=== PATIENT | male | born 1975 | race Caucasian/White ===

== ENCOUNTER 2017-02-14 18:39 | Emergency (ER) | payer OTHER ==
[~2017-02-14] VITALS: Ht 172.7 cm; Wt 72.0 kg
[2017-02-14 19:17] VITALS: BP 131/89; PULSE 74; RESP 18; TEMP 98.7; O2SAT 99
--- NOTE | 2017-02-14 20:16 | PD ---
HPI Chief Complaint: Psychiatric Symptoms Time Seen by Provider: 20:10 Travel History International Travel<30 days: No Contact w/Intl Traveler<30days: No Traveled to known affect area: No History of Present Illness HPI 41-year-old male is brought to the emergency department under Elder act for suicidal ideations. Per the Elder act documentation patient spoke with someone at the [facility] and told him that he was having thoughts of hurting himself. The patient states that he has had "weird thought patterns" recently and has been contemplating hurting himself, no clear plan. He denies any attempts to harm himself, denies any ingestion of substances in an attempt to harm himself. 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 He denies any alcohol use. He complains of lower back pain, states this is chronic and been ongoing for several years, denies any new injury or trauma. He denies chest pain, shortness of breath, abdominal pain fever, chills, nausea, vomiting, numbness or tingling, weakness, saddle anesthesia, bowel or bladder incontinence. No other complaints. PFSH Past Medical History Depression: Yes Hypertension: Yes Social History Alcohol Use: Yes Tobacco Use: Yes (1PPD ) Substance Use: Yes (OCCA.) Allergies-Medications (Allergen,Severity, Reaction): Coded Allergies: Neurontin (Verified Allergy, Intermediate, Tingling, 02/14/17) Reported Meds & Prescriptions Reported Meds & Active Scripts Active No Active Prescriptions or Reported Medications Review of Systems Except as stated in HPI: all other systems reviewed are Neg Physical Exam Narrative GENERAL: Well-nourished and well-developed pleasant male patient in no acute distress who is nontoxic appearing. SKIN: Warm and dry. HEAD: Normocephalic and atraumatic. EYES: No injection, drainage, or hyphema noted. PERRLA. EOMI. ENT: No nasal drainage noted. Oropharynx is clear. NECK: Supple and the trachea is midline. CARDIOVASCULAR: Regular rate and rhythm. RESPIRATORY: Breath sounds are equal bilaterally with no accessory muscle use, wheezing, rhonchi, or crackles. GASTROINTESTINAL: Abdomen is soft, non-tender, and nondistended. MUSCULOSKELETAL: No obvious deformities, swelling, cyanosis, or ecchymosis is present throughout the upper and lower extremities. Patient has full range of motion without any signs of neurovascular compromise. BACK: No erythema, warmth, swelling. Nontender without any obvious deformities , bony point tenderness, or crepitus noted throughout the thoracic and lumbar vertebrae. NEUROLOGICAL: Awake, alert, and oriented. Normal speech and gait. Cranial nerves are grossly intact. Data Data Last Documented VS Vital Signs Date Time Temp Pulse Resp B/P Pulse Ox O2 Delivery O2 Flow Rate FiO2 02/14/17 19:17 98.7 74 18 131/89 99 Orders Complete Blood Count With Diff (02/14/17 18:54) Comprehensive Metabolic Panel (02/14/17 18:54) Psych Screen (02/14/17 18:54) Drug Screen, Random Urine (02/14/17 18:54) Alcohol (Ethanol) (02/14/17 18:54) Labs Laboratory Tests Test 02/14/17 20:30 Urine Opiates Screen NEG Urine Barbiturates Screen NEG Urine Amphetamines Screen POS Urine Benzodiazepines Screen NEG Urine Cocaine Screen NEG Urine Cannabinoids Screen NEG MDM Medical Decision Making Medical Screen Exam Complete: Yes Emergency Medical Condition: Yes Differential Diagnosis Differential: Depression versus adjustment reaction versus anxiety versus PTSD versus psychosis NOS versus mood disorder NOS versus substance induced mood disorder versus ODD versus adjustment reaction versus schizophrenia versus bipolar disorder versus schizoaffective versus electrolyte abnormality Narrative Course Patient presents under a Elder act for suicidal ideations. Patient's only medical complaint is lower back pain, this is been ongoing for several years, no new or worsening pain. He is an IV drug user however he has no midline bony point tenderness, fever, elevated white count or any other red flags to suggest infectious etiology of his lower back pain. Psych screen has been ordered. If the laboratory results are unremarkable, the patient will be medically cleared for psychiatric evaluation and disposition. Diagnosis Primary Impression: Mood disorder Additional Impression: IVDU (intravenous drug user) Scripts No Active Prescriptions or Reported Meds Lilibeth Orozco February 14, 2017 20:16 Lilibeth Orozco February 14, 2017 20:16
[2017-02-14 21:42] LABS: AMPHETAMINE, URINE POS (NEG); BARBITURATES, URINE NEG (NEG); COCAINE, URINE NEG (NEG)
[2017-02-14 22:00] VITALS: BP 142/90; PULSE 77; RESP 18; O2SAT 96
[2017-02-14 23:52] LABS: AUTOMATED NEUTROPHIL # 3.5 TH/MM3 (1.8-7.7); BASOPHIL # 0.2 TH/MM3 (0-0.2); EOSINOPHIL # 0.4 TH/MM3 (0-0.4); EOSINOPHIL % 2.2 % (0.0-4.0); HEMATOCRIT 44.3 % (39.0-51.0); LYMPH % 74.3 % (9.0-44.0); LYMPHOCYTE # 13.5 TH/MM3 (1.0-4.8); MEAN CELL VOLUME 89.3 FL (80.0-100.0); MEAN CORPUSCULAR HEMOGLOBIN 29.7 PG (27.0-34.0); MEAN CORPUSCULAR HGB CONC 33.3 % (32.0-36.0); MONO % 3.1 % (0.0-8.0); NEUT % 19.4 % (16.0-70.0); PLATELET COUNT 214 TH/MM3 (150-450); RED BLOOD COUNT 4.96 MIL/MM3 (4.50-5.90); WHITE BLOOD COUNT 18.2 TH/MM3 (4.0-11.0)
[2017-02-14 23:59] LABS: HEMO FLAGS AUTO DIFF
[2017-02-15 00:15] LABS: ALKALINE PHOSPHATASE 77 U/L (45-117); ALT (GPT) 40 U/L (12-78); ANION GAP 5 MEQ/L (5-15); AST (GOT) 28 U/L (15-37); BICARBONATE 32.7 MEQ/L (21.0-32.0); BLOOD UREA NITROGEN 10 MG/DL (7-18); CHLORIDE 106 MEQ/L (98-107); GLOMERULAR FILTRATION RATE 81 ML/MIN (>89); SODIUM (NA) 144 MEQ/L (136-145); TOTAL BILIRUBIN ADULT 0.4 MG/DL (0.2-1.0)
[2017-02-15 01:10] LABS: ATYPICAL LYMPHOCYTES 30 % (0-0); BANDS 1 % (0-6); EOSINOPHILS 4 % (0-4); NEUTROPHIL # MANUAL DIFF 2.5 TH/MM3 (1.8-7.7); POLYS (SEG NEUTROPHILS) 13 % (16-70); WBC DIFF SAMPLE 100
[2017-02-15 01:11] LABS: PLATELET ESTIMATE SMEAR NORMAL (NORMAL); PLATELET MORPHOLOGY NORMAL (NORMAL); SCAN/DIFF FINAL DIFF MANUAL
[2017-02-15 02:07] VITALS: BP 145/87; PULSE 81; RESP 18; O2SAT 97
== END 2017-02-15 02:39 ==
LOC: NEPJ 18:39
DX: F39 Unspecified mood [affective] disorder (principal); F19.90 Other psychoactive substance use, unspecified, uncomplicated; R45.851 Suicidal ideations; M54.5 Low back pain; I10 Essential (primary) hypertension; F17.200 Nicotine dependence, unspecified, uncomplicated; Z86.59 Personal history of other mental and behavioral disorders
CPT/HCPCS: 80053; 80307; 85007; 85027; 99285

== ENCOUNTER 2017-02-16 17:37 | Emergency (ER) | payer OTHER ==
[~2017-02-16] VITALS: Ht 167.6 cm; Wt 80.0 kg
[2017-02-16 17:50] VITALS: BP 139/87; PULSE 89; RESP 20; TEMP 97.9; O2SAT 97
--- NOTE | 2017-02-16 18:09 | PD ---
HPI Chief Complaint: Psychiatric Symptoms Time Seen by Provider: 18:01 Travel History International Travel<30 days: No Contact w/Intl Traveler<30days: No Traveled to known affect area: No History of Present Illness HPI 41 year old male with PMH of HTN, depression, substance abuse ( methamphetamine) presents to the ED under Elder Act from the [place]. According to the [facility] paperwork the patient reports "no reason to live. Has previous suicide attempt in 2017, has no plan because he is not sure what will be successful, but will come up with something." On presentation the patient endorses hopelessness, depression. He endorses suicidality, but has no plan. He states last attempted suicide was by injection of methamphetamine. He states last use of meth was "2 or 3 weeks ago." He denies any substance or alcohol use today. Endorses chronic back pain, unchanged from usual pain. Denies other somatic complaints. He takes no daily medications. PFSH Past Medical History Depression: Yes Hypertension: Yes Social History Alcohol Use: Yes Tobacco Use: Yes (1PPD ) Substance Use: Yes (METH) Allergies-Medications (Allergen,Severity, Reaction): Coded Allergies: Neurontin (Verified Allergy, Intermediate, Tingling, 02/16/17) Reported Meds & Prescriptions Reported Meds & Active Scripts Active No Active Prescriptions or Reported Medications Review of Systems Except as stated in HPI: all other systems reviewed are Neg Physical Exam Narrative GENERAL: Well-nourished, well-developed white male in NAD. SKIN: Focused skin assessment warm/dry. Multiple tattoos HEAD: Normocephalic. EYES: No scleral icterus. No injection or drainage. NECK: Supple, trachea midline. No JVD or lymphadenopathy. CARDIOVASCULAR: Regular rate and rhythm without murmurs, gallops, or rubs. RESPIRATORY: Breath sounds clear and equal bilaterally. No accessory muscle use. GASTROINTESTINAL: Abdomen soft, non-tender, nondistended. Active bowel sounds. MUSCULOSKELETAL: No cyanosis, or edema. The patient is ambulatory and moves the extremity spontaneously. BACK: Nontender without obvious deformity. No CVA tenderness. Data Data Last Documented VS Vital Signs Date Time Temp Pulse Resp B/P Pulse Ox O2 Delivery O2 Flow Rate FiO2 02/16/17 17:50 97.9 89 20 139/87 97 Orders Complete Blood Count With Diff (02/16/17 17:59) Comprehensive Metabolic Panel (02/16/17 17:59) Urinalysis - C+S If Indicated (02/16/17 17:59) Psych Screen (02/16/17 17:59) Drug Screen, Random Urine (02/16/17 17:59) Alcohol (Ethanol) (02/16/17 17:59) Diet Regular Basic (02/17/17 Breakfast) Labs Laboratory Tests Test 02/16/17 18:00 White Blood Count 17.2 TH/MM3 Red Blood Count 5.20 MIL/MM3 Hemoglobin 15.6 GM/DL Hematocrit 47.3 % Mean Corpuscular Volume 91.1 FL Mean Corpuscular Hemoglobin 30.0 PG Mean Corpuscular Hemoglobin 33.0 % Concent Red Cell Distribution Width 14.1 % Platelet Count 187 TH/MM3 Mean Platelet Volume 8.4 FL Neutrophils (%) (Auto) 28.3 % Lymphocytes (%) (Auto) 66.4 % Monocytes (%) (Auto) 3.3 % Eosinophils (%) (Auto) 1.6 % Basophils (%) (Auto) 0.4 % Neutrophils # (Auto) 4.9 TH/MM3 Lymphocytes # (Auto) 11.4 TH/MM3 Monocytes # (Auto) 0.6 TH/MM3 Eosinophils # (Auto) 0.3 TH/MM3 Basophils # (Auto) 0.1 TH/MM3 CBC Comment AUTO DIFF Differential Total Cells 100 Counted Neutrophils % (Manual) 25 % Lymphocytes % 62 % Monocytes % 3 % Eosinophils % 3 % Neutrophils # (Manual) 4.3 TH/MM3 Differential Comment FINAL DIFF MANUAL Atypical Lymphocytes 7 % Urine Color LIGHT-YELLOW Urine Turbidity CLEAR Urine pH 5.5 Urine Specific [place] 1.008 Urine Protein NEG mg/dL Urine Glucose (UA) NEG mg/dL Urine Ketones NEG mg/dL Urine Occult Blood NEG Urine Nitrite NEG Urine Bilirubin NEG Urine Urobilinogen LESS THAN 2.0 MG/DL Urine Leukocyte Esterase NEG Urine RBC LESS THAN 1 /hpf Urine WBC LESS THAN 1 /hpf Urine Mucus FEW /lpf Microscopic Urinalysis Comment CULT NOT INDICATED Sodium Level 140 MEQ/L Potassium Level 4.2 MEQ/L Chloride Level 105 MEQ/L Carbon Dioxide Level 27.0 MEQ/L Anion Gap 8 MEQ/L Blood Urea Nitrogen 13 MG/DL Creatinine 0.94 MG/DL Estimat Glomerular Filtration 88 ML/MIN Rate Random Glucose 109 MG/DL Calcium Level 8.6 MG/DL Total Bilirubin 0.2 MG/DL Aspartate Amino Transf 20 U/L (AST/SGOT) Alanine Aminotransferase 46 U/L (ALT/SGPT) Alkaline Phosphatase 72 U/L Total Protein 7.0 GM/DL Albumin 3.7 GM/DL Urine Opiates Screen NEG Urine Barbiturates Screen NEG Urine Amphetamines Screen NEG Urine Benzodiazepines Screen NEG Urine Cocaine Screen NEG Urine Cannabinoids Screen NEG Ethyl Alcohol Level LESS THAN 3 MG/DL MDM Medical Decision Making Medical Screen Exam Complete: Yes Emergency Medical Condition: Yes Differential Diagnosis Adjustment disorder versus anxiety versus bipolar versus depression versus dementia versus electrolyte disorder versus malingering versus mood disorder versus ODD versus psychosis versus PTSD versus schizophrenia versus schizoaffective disorder versus substance-induced mood disorder versus other Narrative Course 41 year old male with PMH of HTN, depression, substance abuse ( methamphetamine) [facility] According to [facility] paperwork the patient reports "no reason to live." On presentation the patient endorses hopelessness, depression, suicidality. No definitive plan. He states last attempted suicide was by injection of methamphetamine. He states last use of meth was "2 or 3 weeks ago." He denies any substance or alcohol use today. Endorses chronic back pain, unchanged from usual. Denies other somatic complaints. The patient is afebrile, nontoxic appearing on presentation. Chest CTAB, abdomen soft, nontender. No CVA tenderness. No lower extremity edema. Leukocytosis of 17.2, improved from 18.2 on 02/14. No left shift. I suspect this may be a stress reaction from the patients substance abuse. Patient will spend the night in the psych unit. Recommend monitoring vitals for signs of infection. The patient is medically cleared for psych evaluation. Diagnosis Primary Impression: Medical clearance for psychiatric admission Scripts No Active Prescriptions or Reported Meds Nancy Stallings Feb 16, 2017 18:09
[2017-02-16 18:37] LABS: AUTOMATED NEUTROPHIL # 4.9 TH/MM3 (1.8-7.7); BASOPHIL # 0.1 TH/MM3 (0-0.2); BASOPHIL % 0.4 % (0.0-2.0); EOSINOPHIL # 0.3 TH/MM3 (0-0.4); EOSINOPHIL % 1.6 % (0.0-4.0); HEMATOCRIT 47.3 % (39.0-51.0); LYMPH % 66.4 % (9.0-44.0); LYMPHOCYTE # 11.4 TH/MM3 (1.0-4.8); MEAN CELL VOLUME 91.1 FL (80.0-100.0); MONO % 3.3 % (0.0-8.0); NEUT % 28.3 % (16.0-70.0); PLATELET COUNT 187 TH/MM3 (150-450); RED CELL DISTRIBUTION WIDTH 14.1 % (11.6-17.2); WHITE BLOOD COUNT 17.2 TH/MM3 (4.0-11.0)
[2017-02-16 18:39] LABS: HEMO FLAGS AUTO DIFF
[2017-02-16 18:41] LABS: BLOOD, URINE NEG (NEG); COMMENT (UR) CULT NOT INDICATED; CULTURE IF INDICATED CULT NOT INDICATED; GLUCOSE,URINE NEG (NEG); KETONE, URINE NEG (NEG); MUCUS URINE FEW /lpf (OCC); NITRITE,URINE NEG (NEG); PH, URINE 5.5 (5.0-8.5); URINE COLOR LIGHT-YELLOW (YELLW/STRAW)
[2017-02-16 18:45] LABS: AMPHETAMINE, URINE NEG (NEG); BARBITURATES, URINE NEG (NEG); COCAINE, URINE NEG (NEG)
[2017-02-16 19:12] LABS: ANION GAP 8 MEQ/L (5-15); BLOOD UREA NITROGEN 13 MG/DL (7-18); CHLORIDE 105 MEQ/L (98-107); GLOMERULAR FILTRATION RATE 88 ML/MIN (>89); POTASSIUM 4.2 MEQ/L (3.5-5.1); SODIUM (NA) 140 MEQ/L (136-145)
[2017-02-16 19:13] LABS: ALT (GPT) 46 U/L (12-78); AST (GOT) 20 U/L (15-37)
[2017-02-16 19:15] LABS: ALKALINE PHOSPHATASE 72 U/L (45-117); TOTAL BILIRUBIN ADULT 0.2 MG/DL (0.2-1.0)
[2017-02-16 19:20] LABS: EOSINOPHILS 3 % (0-4); NEUTROPHIL # MANUAL DIFF 4.3 TH/MM3 (1.8-7.7); POLYS (SEG NEUTROPHILS) 25 % (16-70); WBC DIFF SAMPLE 100
[2017-02-16 19:22] LABS: ATYPICAL LYMPHOCYTES 7 % (0-0)
[2017-02-16 19:42] LABS: SCAN/DIFF FINAL DIFF MANUAL
[2017-02-16 20:45] VITALS: BP 154/91; PULSE 72; RESP 18; TEMP 98.5; O2SAT 99
[2017-02-17 02:30] VITALS: BP 143/98; PULSE 83; RESP 18; O2SAT 97
[2017-02-17 06:22] VITALS: BP 133/91; PULSE 71; RESP 18; O2SAT 97
[2017-02-17 09:40] VITALS: BP 130/90; TEMP 98.1
== END 2017-02-17 09:44 ==
LOC: NEDAMB 17:37 → NEPJ 02-17 09:44
DX: Z02.89 Encounter for other administrative examinations (principal); D72.829 Elevated white blood cell count, unspecified; F32.9 Major depressive disorder, single episode, unspecified; I10 Essential (primary) hypertension; M54.9 Dorsalgia, unspecified; G89.29 Other chronic pain; F19.10 Other psychoactive substance abuse, uncomplicated; F17.200 Nicotine dependence, unspecified, uncomplicated; Z86.59 Personal history of other mental and behavioral disorders
CPT/HCPCS: 80053; 80307; 81001; 85007; 85027; 99283